=== PATIENT | female | born 1955 | race Caucasian/White ===

== ENCOUNTER → 2016-12-20 | Outpatient (CLI) | payer MEDICAID ==
[2015-11-30 10:47] VITALS: BP 154/41
[~2016-12-20] MED LIST: AMLO10TA4 PO; ASPI-482 PO; ATOR40TA PO; CARV12.5 PO; CLOP75TA57 PO; DOXA2TAB2 PO; FURO-69 PO; FURO20TA3 PO; HYDR-2678 PO; HYDR100T24 PO; ISOS20TA2 PO; LINA5TAB4 PO; METO5TAB4 PO; NITR0.4T SL; SITA50TA PO; SODI650T PO; TRAM50TA PO
--- NOTE | 2016-12-20 12:20 | CARD ---
APPROVED REPORT EXAM: Two-dimensional and M-mode echocardiogram with Doppler and color Doppler. Other Information Quality : Average Rhythm : NSR INDICATION Murmur 2D DIMENSIONS RVDd2.0 (2.9-3.5cm)Left Atrium(2D)3.3 (1.6-4.0cm) IVSd1.6 (0.7-1.1cm)Aortic Root(2D)2.6 (2.0-3.7cm) LVDd3.9 (3.9-5.9cm)LVOT Diameter2.1 (1.8-2.4cm) PWd1.6 (0.7-1.1cm)LVDs2.6 (2.5-4.0cm) FS (%) 32.7 %SV41.5 ml LVEF(%)61.7 (>50%) Aortic Valve AoV Peak Guillermo.228.6cm/sAoV VTI42.9cm AO Peak GR.20.9mmHgLVOT Peak Guillermo.121.9cm/s LVOT VTI 22.47cmAO Mean GR.13mmHg THALIA (VMAX)1.60cu1GBX (VTI)1.79cm2 Mitral Valve MV E Oxtwhine96.6cm/sMV DECEL YPEN811tl MV A Fhdtfcss071.3cm/sMV E Mean Gr.5mmHg MV XGH79baA/A Ratio0.5 MV A Fqaxppir241fvPZC (PHT)3.74cm2 TDI E/Lateral E'10.4E/Medial E'10.5 Pulmonary Valve PV Peak Cbatmtqe543.7cm/sPV Peak Grad.6mmHg Tricuspid Valve TR P. Tnkzhimq364hf/sRAP JITSOAQL4nuQw TR Peak Gr.74yzBeXOEE11vsVc Pulmonary Vein S1 Dlixkokn22.9cm/sD2 Suhdefyu95.0cm/s LEFT VENTRICLE The left ventricle is normal size. There is moderate concentric left ventricular hypertrophy. Left ve ntricle systolic function is normal. The Ejection Fraction is 60-65%. There is normal LV segmental wa ll motion. Tissue Doppler imaging reveals mild left ventricular diastolic dysfunction. Transmitral Do ppler flow pattern is Grade I-abnormal relaxation pattern. There is no ventricular septal defect visu alized. RIGHT VENTRICLE The right ventricle is normal size. The right ventricular systolic function is normal. ATRIA The left atrium size is normal. The right atrium size is normal. The interatrial septum is intact wit h no evidence for an atrial septal defect or patent foramen ovale as noted on 2-D or Doppler imaging. AORTIC VALVE The aortic valve is mildly calcified. Doppler and Color Flow revealed no significant aortic regurgita tion. There is no significant aortic valvular stenosis. MITRAL VALVE The mitral valve is normal in structure and function. There is no mitral valve stenosis. Doppler and Color Flow revealed trace mitral regurgitation. TRICUSPID VALVE The tricuspid valve is normal in structure and function. Doppler and Color Flow revealed trace tricus pid regurgitation. The PA pressure was estimated at 17 mmHg. There is no tricuspid valve stenosis. PULMONIC VALVE The pulmonic valve is not well visualized. Doppler and Color Flow revealed no pulmonic valvular regur gitation. There is no pulmonic valvular stenosis. GREAT VESSELS The aortic root is normal in size. The ascending aorta is normal in size. Normal pulmonary venous iveth w (Doppler) suggestive of diastolic dysfunction. The IVC is normal in size and collapses >50% with in spiration. PERICARDIAL EFFUSION There is no evidence of significant pericardial effusion. Critical Notification Critical Value: No <Conclusion> Left ventricle systolic function is normal. The Ejection Fraction is 60-65%. There is normal LV segmental wall motion. Transmitral Doppler flow pattern is Grade I-abnormal relaxation pattern. Trace mitral regurgitation. Trace tricuspid regurgitation. The PA pressure was estimated at 17 mmHg. There is no evidence of significant pericardial effusion.
== END | disposition home or self-care (01) ==
LOC: ECHO 09:38
PROVIDERS: ATTEND Internal Medicine Cardiovascular Disease
DX: I31.3 Pericardial effusion (noninflammatory) (principal); I51.7 Cardiomegaly
CPT/HCPCS: 93306

== ENCOUNTER → 2018-09-19 | Outpatient (CLI) | payer MEDICARE ==
[2015-11-30 10:47] VITALS: BP 154/41
[~2018-09-19] MED LIST changes: +LINA5TAB PO; -LINA5TAB4 PO; +REGADENOSON 0.4 MG/5 ML DISP.SYRIN. IV ONE
--- NOTE | 2018-09-19 11:49 | CARD ---
MR#: [id number] Date of Study: 09/19/2018 Ordering Physician: CORRINA MEZA, Referring Physician: CORRINA MEZA, Tech: Thais Bob APPROVED REPORT EXAM: Two-dimensional and M-mode echocardiogram with Doppler and color Doppler. Other Information Quality : AverageHR: 99bpm INDICATION Murmur RISK FACTORS Hypertension Hyperlipidemia Smoking 2D DIMENSIONS RVDd2.7 (2.9-3.5cm)Left Atrium(2D)4.5 (1.6-4.0cm) IVSd1.5 (0.7-1.1cm)Aortic Root(2D)3.1 (2.0-3.7cm) LVDd5.0 (3.9-5.9cm)LVOT Diameter2.1 (1.8-2.4cm) PWd1.5 (0.7-1.1cm)LVDs3.7 (2.5-4.0cm) FS (%) 26.1 %SV59.3 ml Aortic Valve AoV Peak Guillermo.251.2cm/sAoV VTI53.7cm AO Peak GR.25.2mmHgLVOT Peak Guillermo.98.8cm/s LVOT VTI 20.78cmAO Mean GR.16mmHg THALIA (VMAX)1.84le0EKK (VTI)1.33cm2 AI P 1/2 Idou227ve Mitral Valve MV E Fkxjwyca79.0cm/sMV DECEL NAIY728sf MV A Dcltnguk244.7cm/sMV WMD91ge E/A Ratio0.6MVA (PHT)3.59cm2 TDI E/Lateral E'17.5E/Medial E'8.6 Pulmonary Valve PV Peak Yfuqeuza941.3cm/sPV Peak Grad.13mmHg Tricuspid Valve TR P. Cvucukbu508lk/sRAP DMQLOTNX2xxCm TR Peak Gr.07dyEtYIKB57olGp Pulmonary Vein S1 Xekahzgp51.2cm/sD2 Tuxlnucr57.5cm/s PVa uwglrjdi534txrp LEFT VENTRICLE The left ventricle is normal size. There is moderate concentric left ventricular hypertrophy. The lef t ventricular systolic function is normal and the ejection fraction is within normal range. The Eject ion Fraction is 50-55%. There is normal LV segmental wall motion. Transmitral Doppler flow pattern is Grade I-abnormal relaxation pattern. RIGHT VENTRICLE The right ventricle is normal size. The right ventricle is mildly hypertrophied. The right ventricula r systolic function is normal. ATRIA The left atrium is mildly dilated. The right atrium size is normal. AORTIC VALVE The aortic valve is calcified but opens well. Doppler and Color Flow revealed trace to mild aortic re gurgitation. There is mild valvular aortic stenosis. Calculated aortic valve area is 1.3 cm2 with max imum pressure gradient of 25 mmHg and mean pressure gradient of 16 mmHg. MITRAL VALVE The mitral valve is normal in structure and function. Mitral annular calcification is mild. There is no evidence of mitral valve prolapse. There is no mitral valve stenosis. Doppler and Color-flow revea led trace mitral regurgitation. TRICUSPID VALVE The tricuspid valve is normal in structure and function. Doppler and Color Flow revealed trace tricus pid regurgitation with an estimated PAP of 36 mmHg. There is no tricuspid valve stenosis. PULMONIC VALVE The pulmonary valve is thickened but opens well. Doppler and Color Flow revealed trace to mild pulmon ic valvular regurgitation. GREAT VESSELS The aortic root is normal in size. The IVC is normal in size and collapses >50% with inspiration. PERICARDIAL EFFUSION There is a trace to mild circumferential pericardial effusion with no hemodynamic significance. Critical Notification Critical Value: No <Conclusion> The left ventricle is normal size. The left ventricular systolic function is normal and the ejection fraction is within normal range. The Ejection Fraction is 50-55%. There is moderate concentric left ventricular hypertrophy. Doppler and Color Flow revealed trace to mild aortic regurgitation. There is mild valvular aortic stenosis. Calculated aortic valve area is 1.3 cm2 with maximum pressure gradient of 25 mmHg and mean pressure g radient of 16 mmHg. Doppler and Color-flow revealed trace mitral regurgitation. There is a trace to mild circumferential pericardial effusion with no hemodynamic significance. Signed by : Corrina Meza MD Electronically Approved : 09/19/2018 11:48:58
--- NOTE | 2018-09-19 12:45 | RAD ---
MR#: [id number] Date of Study: 09/19/2018 Ordering Physician: CORRINA HAHN, Referring Physician: POLLY ESTRADA Tech: RT Izabella (R) (N) APPROVED REPORT Test Type: Pharmacological Stress Nurse/Tech: Na Malik R.N. Test Indications: CAD, stents, SOB on exertion Cardiac History: stents, cardiac arrest in 2016 Medications: Zocor Medical History: See Electronic Medical Record Resting ECG: NSR Resting Heart Rate: 94 bpm Resting Blood Pressure: 174/71mmHg Pretest Chest Pain: No chest pain Nurse/Tech Notes Murmur, lungs sound clear Consent: The procedure was explained to the patient in lay terms. Informed consent was witnessed. [employer] eout was entered into [employer]. History and Stress Test performed by Na Malik R.N. Pharm. Details Pharmacologic stress testing was performed using 0.4mg per 5ml of regadenoson given intravenously ove r 7-10 seconds. Stress Symptoms DyspneaFlushing POST EXERCISE Reason for Termination: Infusion complete Target HR: 133 Max HR: 118 bpm Max Blood Pressure: 147/54mmHg Blood Pressure response to exercise: Normal blood pressure response during stress. Chest Pain: No. Arrhythmia: No. ST Change: No. INTERPRETATION Stress EKG Conclusion: The resting EKG showed a sinus rhythm with ST segment changes including septal elevation and inferior depression. The stress EKG showed mild further inferior depression. No EKG evidence of stressed induced ischemia. Imaging Protocol IMAGE PROTOCOL: Rest Tc-99m/stress Tc-99m 1 day Rest: Stress: Viability: Radiopharm.Tc99m AtzijhzdyWq41n Sestamibi Bpev03jBf 33mCi Duration 13min. 13min. Img Date 09/19/2018 09/19/2018 Inj-Img Nxbx86czq. 60min. Rest Admin Site:IV - Right HandAdministrator:RT Izabella (R)(N) Stress Admin Site: IV - Right HandAdministrator: RT Izabella (R)(N) STRESS DATA End Diast. Vol.157.0mlLVEDV index BSA93.0ml End Syst. Vol.96.0mlLVESV index BSA57.0ml Myocardial Yrix506.0gEject. Ttoxokxa23.0% Stress Scores Regional WT3.00Summed WT36.00 Regional WM2.00Summed WM24.00 LV Perfusion The stress scans showed an anterior lateral wall defect. The rest scans showed an anterior lateral wall defect. Nuclear imaging shows a previous infarction in the anterior lateral wall with mild pat-infarct rever sible ischemia. Wall Motion The left ventricle showed anterior septal hypokinesis with an ejection fraction of 39%. LV Perf. Quant 17 Seg. SSS20.00 17 Seg. SRS18.00 17 Seg. SDS4.00 Stress Defect Extent (% LAD)50.00Rest Defect Extent (% LAD)53.10Rev. Defect Extent (% LAD)6.90 Stress Defect Extent (% LCX) 97.50Rest Defect Extent (% LCX)78.80Rev. Defect Extent (% LCX)31.30 Stress Defect Extent (% RCA)3.30Rest Defect Extent (% RCA)0.00Rev. Defect Extent (% RCA)3.30 Stress Defect Extent (% DARON)45.70Rest Defect Extent (% DARON)40.40Rev. Defect Extent (% DARON)13.70 Conclusion 1. Baseline abnormal EKG and further mild changes with stress. 2. Nuclear imaging shows an anterior lateral wall infarct with mild pat-infarction reversible ische grecia. 3. Left ventricular systolic function is decreased at 39% with an anterior septal wall motion abnorma lity. 4. Moderate risk Lexiscan nuclear stress test. Signed by : Corrina Hahn MD Electronically Approved : 09/19/2018 12:45:27
== END | disposition home or self-care (01) ==
LOC: NM 07:19
PROVIDERS: ATTEND Internal Medicine Cardiovascular Disease
DX: I08.8 Other rheumatic multiple valve diseases (principal); I21.09 ST elevation (STEMI) myocardial infarction involving other coronary artery of anterior wall; I11.9 Hypertensive heart disease without heart failure; R94.31 Abnormal electrocardiogram [ECG] [EKG]; E78.5 Hyperlipidemia, unspecified; F17.200 Nicotine dependence, unspecified, uncomplicated; Z95.818 Presence of other cardiac implants and grafts
CPT/HCPCS: 78452; 93017; 93306; A9500; J2785

== ENCOUNTER 2018-12-19 21:22 | Emergency (ER) | payer MEDICARE, OTHER ==
[~2018-12-19] VITALS: Ht 160 cm; Wt 73.9 kg
[~2018-12-19 21:22] MED LIST changes: -REGADENOSON 0.4 MG/5 ML DISP.SYRIN. IV ONE
[2018-12-19 22:22] LABS: BASO # 0.1 x10^3/uL (0.0-0.2); BASO % 1 % (0-3); EOS # 0.1 x10^3/uL (0.0-0.7); EOS % 1 % (0-3); HEMATOCRIT 31.2 % (36.0-47.0); HEMOGLOBIN 10.4 g/dL (12.0-15.5); LYMPH # 1.7 x10^3/uL (1.0-4.8); LYMPH % 16 % (24-48); MEAN CORPUSCULAR HEMOGLOBIN 32 pg (25-35); MEAN CORPUSCULAR HGB CONC 33 g/dL (31-37); MEAN CORPUSCULAR VOLUME 96 fL (79-100); MONO # 0.5 x10^3/uL (0.0-1.1); MONO % 5 % (0-9); NEUT # 8.3 x10^3/uL (1.8-7.7); NEUT % 77 % (31-73); PLATELET COUNT 307 x10^3/uL (140-400); RED BLOOD COUNT 3.26 x10^6/uL (3.50-5.40); RED CELL DISTRIBUTION WIDTH 13.9 % (11.5-14.5); WHITE BLOOD COUNT 10.7 x10^3/uL (4.0-11.0)
[2018-12-19 22:31] LABS: CREATININE 5.1 mg/dL (0.6-1.0); GFR 8.5; POTASSIUM 4.7 mmol/L (3.5-5.1)
[2018-12-19 22:36] LABS: ALBUMIN 3.1 g/dL (3.4-5.0); ALBUMIN/GLOBULIN RATIO 0.8 (1.0-1.7); MAGNESIUM 2.3 mg/dL (1.8-2.4); TOTAL BILIRUBIN 0.2 mg/dL (0.2-1.0); TOTAL PROTEIN 7.1 g/dL (6.4-8.2)
--- NOTE | 2018-12-19 23:21 | RAD ---
PORTABLE CHEST 1V INDICATION: Palpitations. COMPARISON STUDY: 11/24/2015. FINDINGS: Lungs: Normal lung volume. No focal airspace disease. Normal pulmonary vasculature. Pleura: No pleural effusion or pneumothorax. Heart and Mediastinum: Marked cardiomegaly. Atherosclerotic thoracic aorta. Bones and Soft Tissues: Stable regional skeleton and soft tissues. IMPRESSION: No consolidation. Electronically signed by: Ramsey Tom MD (12/19/2018 11:18 PM) [facility]
[2018-12-19 23:34] VITALS: BP 179/79
--- NOTE | 2018-12-19 23:45 | PHYS DOC ---
Past Medical History Past Medical History: Hypertension, Unknown, Other Additional Past Medical Histor: KIDNEY DX (STAGE 4) Past Surgical History: Other Additional Past Surgical Histo: unknown Additional Information: 0.5/PPD Alcohol Use: None Drug Use: None Adult General Chief Complaint Chief Complaint: Palpitations HPI HPI Patient is a 62-year-old female who presents with complaint of palpitations, stating that she felt like her heart was beating very fast up in her neck. She indicates that she had no chest pain. She denies any shortness of breath. Patient states that at this time symptoms have resolved. She indicates that there were no exacerbating or alleviating factors.[] Review of Systems Review of Systems Constitutional: Denies fever or chills [] Respiratory: Denies cough or shortness of breath [] Cardiovascular: No additional information not addressed in HPI [] GI: Denies abdominal pain, nausea, vomiting or diarrhea [] Integument: Denies rash or skin lesions [] Neurologic: Denies headache, focal weakness or sensory changes [] All other systems were reviewed and found to be within normal limits, except as documented in this note. Allergies Allergies Allergies Coded Allergies Type Severity Reaction Last Updated Verified fentanyl Allergy Severe Swelling 11/25/15 Yes iodine Allergy Intermediate 11/24/15 Yes Physical Exam Physical Exam Constitutional: Well developed, well nourished, no acute distress, non-toxic appearance. [] HENT: Normocephalic, atraumatic, bilateral external ears normal, oropharynx moist, no oral exudates, nose normal. [] Eyes: PERRLA, EOMI, conjunctiva normal, no discharge. [] Neck: Normal range of motion, no tenderness, supple, no stridor. [] Cardiovascular: Mildly tachycardic rate with regular rhythm[] Lungs & Thorax: Bilateral breath sounds clear to auscultation [] Abdomen: Bowel sounds normal, soft, no tenderness. [] Skin: Warm, dry, no erythema, no rash. [] Extremities: No tenderness, no cyanosis, no clubbing, ROM intact. [] Neurologic: Alert and oriented X 3, no focal deficits noted. [] Current Patient Data Vital Signs Vital Signs Date Time Temp Pulse Resp B/P (MAP) Pulse Ox O2 Delivery O2 Flow Rate FiO2 12/19/18 23:04 100 23 158/41 (80) 95 Room Air 12/19/18 21:35 98.4 98.4 Lab Values Laboratory Tests Test 12/19/18 22:13 White Blood Count 10.7 x10^3/uL (4.0-11.0) Red Blood Count 3.26 x10^6/uL (3.50-5.40) L Hemoglobin 10.4 g/dL (12.0-15.5) L Hematocrit 31.2 % (36.0-47.0) L Mean Corpuscular Volume 96 fL (79-100) Mean Corpuscular Hemoglobin 32 pg (25-35) Mean Corpuscular Hemoglobin Concent 33 g/dL (31-37) Red Cell Distribution Width 13.9 % (11.5-14.5) Platelet Count 307 x10^3/uL (140-400) Neutrophils (%) (Auto) 77 % (31-73) H Lymphocytes (%) (Auto) 16 % (24-48) L Monocytes (%) (Auto) 5 % (0-9) Eosinophils (%) (Auto) 1 % (0-3) Basophils (%) (Auto) 1 % (0-3) Neutrophils # (Auto) 8.3 x10^3/uL (1.8-7.7) H Lymphocytes # (Auto) 1.7 x10^3/uL (1.0-4.8) Monocytes # (Auto) 0.5 x10^3/uL (0.0-1.1) Eosinophils # (Auto) 0.1 x10^3/uL (0.0-0.7) Basophils # (Auto) 0.1 x10^3/uL (0.0-0.2) Sodium Level 142 mmol/L (136-145) Potassium Level 4.7 mmol/L (3.5-5.1) Chloride Level 107 mmol/L (98-107) Carbon Dioxide Level 23 mmol/L (21-32) Anion Gap 12 (6-14) Blood Urea Nitrogen 71 mg/dL (7-20) H Creatinine 5.1 mg/dL (0.6-1.0) H Estimated GFR (Cockcroft-Gault) 8.5 BUN/Creatinine Ratio 14 (6-20) Glucose Level 155 mg/dL (70-99) H Calcium Level 9.0 mg/dL (8.5-10.1) Magnesium Level 2.3 mg/dL (1.8-2.4) Total Bilirubin 0.2 mg/dL (0.2-1.0) Aspartate Amino Transferase (AST) 40 U/L (15-37) H Alanine Aminotransferase (ALT) 35 U/L (14-59) Alkaline Phosphatase 69 U/L (46-116) Troponin I Quantitative 0.129 ng/mL (0.000-0.055) Total Protein 7.1 g/dL (6.4-8.2) Albumin 3.1 g/dL (3.4-5.0) L Albumin/Globulin Ratio 0.8 (1.0-1.7) L Thyroid Stimulating Hormone (TSH) 0.714 uIU/mL (0.358-3.74) Laboratory Tests 12/19/18 22:13 Laboratory Tests 12/19/18 22:13 EKG EKG [] Interpretation Time: EKG demonstrates sinus tachycardia with rate of 107. Radiology/Procedures Radiology/Procedures [] Impressions: PROCEDURE: PORTABLE CHEST 1V PORTABLE CHEST 1V INDICATION: Palpitations. COMPARISON STUDY: 11/24/2015. FINDINGS: Lungs: Normal lung volume. No focal airspace disease. Normal pulmonary vasculature. Pleura: No pleural effusion or pneumothorax. Heart and Mediastinum: Marked cardiomegaly. Atherosclerotic thoracic aorta. Bones and Soft Tissues: Stable regional skeleton and soft tissues. IMPRESSION: No consolidation. Electronically signed by: Ramsey Tom MD (12/19/2018 11:18 PM) [facility] Course & Med Decision Making Course & Med Decision Making Pertinent Labs and Imaging studies reviewed. (See chart for details) [] Dragon Disclaimer Dragon Disclaimer This electronic medical record was generated, in whole or in part, using a voice recognition dictation system. Departure Departure Impression: Primary Impression: Palpitations Additional Impressions: Elevated troponin Eelkn-rs-dsgiflv kidney injury Disposition: 07 AGAINST MEDICAL ADVICE Condition: GOOD Referrals: CANDIS DIXON MD (PCP) Problem Qualifiers Additional Impressions: Xmvvv-cq-zkdlwlj kidney injury Acute renal failure type: unspecified Chronic kidney disease stage: unspecified stage Qualified Codes: N17.9 - Acute kidney failure, unspecified; N18.9 - Chronic kidney disease, unspecified JEET YADAV Jr. DO Dec 19, 2018 23:45
--- NOTE | 2018-12-23 06:31 | EKG ---
[facility] [address] [place] [address] Test Date: 2018-12-19 Test Time: 21:31:16 Pat Name: FREEMAN SOSA Department: Room: Gender: F [employer]: : 1955 Requested By: JEET YADAV Order Number: [id number] Reading MD: Measurements Intervals [place] Rate: 107 P: 66 LA: 158 QRS: 31 QRSD: 82 T: 109 QT: 346 QTc: 461 Interpretive Statements SINUS TACHYCARDIA LEFT ATRIAL ABNORMALITY LVH WITH REPOLARIZATION ABNORMALITY ABNORMAL ECG RI6.01 Unconfirmed report No previous ECG available for comparison
== END 2018-12-19 23:44 | disposition left against medical advice (07) ==
LOC: ER 21:22
DX: R00.2 Palpitations (principal); N17.9 Acute kidney failure, unspecified; I12.9 Hypertensive chronic kidney disease with stage 1 through stage 4 chronic kidney disease, or unspecified chronic kidney disease; N18.4 Chronic kidney disease, stage 4 (severe); R74.8 Abnormal levels of other serum enzymes; I10 Essential (primary) hypertension; F17.200 Nicotine dependence, unspecified, uncomplicated; Z88.4 Allergy status to anesthetic agent; Z88.8 Allergy status to other drugs, medicaments and biological substances
CPT/HCPCS: 36415; 71045; 80053; 83735; 84443; 84484; 85025; 93005; 99285-25